=== PATIENT | male | born 1990 | race Caucasian/White ===

== ENCOUNTER 2018-04-16 19:06 | Inpatient (IN) | payer SELFPAY ==
[~2018-04-16] VITALS: Ht 185.4 cm; Wt 69.9 kg
[2018-04-16] MEDS ORDERED: SODIUM CHLORIDE 0.9% 1,000 ML IV ONE (20:15)
[2018-04-16] MEDS ORDERED: DEXTROSE 50% SYRINGE 50 ML IV ONE (20:35)
[2018-04-16 20:37] LABS: Basophils # (auto) 0 uL; Basophils % (auto) 0.2 % (0.0-2.0); Eosinophils # (auto) 0 uL; Eosinophils % (auto) 0.1 % (0.0-7.0); Hematocrit 44.5 % (41.0-53.0); Hemoglobin 14.9 g/dL (13.5-17.5); Lymphocytes # (auto) 0.7 uL; Lymphocytes % (auto) 6.8 % (10.0-50.0); Mean Corpuscular Hemoglobin 31.5 pg (28.0-32.0); Mean Corpuscular Hgb Conc. 33.5 g/dL (32.0-36.0); Mean Corpuscular Volume 94.2 fL (80.0-100.0); Monocytes # (auto) 0.6 uL; Monocytes % (auto) 5.2 % (0.0-12.0); Neutrophils # (auto) 9.5 uL; Neutrophils % (auto) 87.7 % (37.0-80.0); Platelet Count (auto) 133 10^3/uL (140-450); Red Blood Cells 4.73 10^6/uL (4.5-5.90); Red Cell Distribution Width 12.8 % (11.8-14.3); White Blood Cell 10.8 10^3/uL (4.4-10.8)
[2018-04-16] MEDS ORDERED: DEXTROSE (50%) 50ML SYRG IV ONE (20:45)
[2018-04-16 20:47] LABS: Alanine Aminotransferase 17 U/L (16-61); Albumin 3.9 g/dL (3.4-5.0); Anion Gap 8 (5-15); Aspartate Aminotransferase 12 U/L (15-37); BUN/Creatinine Ratio 14.3; Blood Alcohol < 3.0 mg/dL (0-5); Blood Urea Nitrogen 19 mg/dL (7-18); Carbon Dioxide 29 mmol/L (21-32); Chloride 106 mmol/L (98-107); GFR African American 84 mL/min; GFR Non-African American 70 mL/min; Glucose 80 mg/dL (74-106); Magnesium 2.2 mg/dL (1.6-2.6); Potassium 3.9 mmol/L (3.5-5.1); Sodium 143 mmol/L (136-145)
[2018-04-16 20:50] LABS: Alkaline Phosphatase 87 U/L (45-117); Bilirubin, Total 0.1 mg/dL (0.2-1.0); Total Protein 7.8 g/dL (6.4-8.2)
[2018-04-16 20:55] LABS: Acetaminophen < 2.0 ug/mL (10-30); Salicylate < 1.7 mg/dL (2.8-20.0)
[2018-04-16 21:18] LABS: Urine Bacteria NONE SEEN /hpf (None Seen); Urine Blood 1+ /uL (Negative); Urine Mucus FEW (None Seen); Urine Specific Gravity 1.024 (1.001-1.035); Urine WBC 3 /hpf (0 - 3)
[2018-04-16 21:32] LABS: Alcohol, Urine < 3.0 mg/dL (0-5); Amphetamine Screen, Urine NEGATIVE (NEGATIVE); Barbiturate Scree,Urine NEGATIVE (NEGATIVE); Benzodiazephine Screen, Urine NEGATIVE (NEGATIVE); Cannabinoid Screen, Urine POSITIVE (NEGATIVE); Cocaine Screen, Urine NEGATIVE (NEGATIVE); Phencyclidine Screen, Urine NEGATIVE (NEGATIVE)
[2018-04-16 21:49] LABS: Opiate Scree,Urine NEGATIVE (NEGATIVE)
[2018-04-16] MEDS ORDERED: DEXTROSE 10% 1,000 ML IV ONE ×2 (23:35→23:45)
[2018-04-17] MEDS: SODIUM CHLORIDE 0.9% 1,000 ML IV SCH ×2 (00:35→13:00)
[2018-04-17] MEDS ORDERED: ACETAMINOPHEN 325 MG TAB PO PRN (00:45)
[2018-04-17] MEDS ORDERED: DEXTROSE 10% 1,000 ML IV ONE (00:45)
[2018-04-17] MEDS ORDERED: ONDANSETRON HCL 4 MG/2 ML VIAL IV PRN (00:45)
[2018-04-17] MEDS ORDERED: TEMAZEPAM 15 MG CAP PO PRN (00:45)
[2018-04-17] MEDS ORDERED: NITROGLYCERIN 0.4 MG SL TAB SL PRN (00:45)
[2018-04-17] MEDS ORDERED: MORPHINE SULF(PF) 0.5MG/ML 10ML VIAL IV PRN (00:45)
[2018-04-17] MEDS ORDERED: DEXTROSE (50%) 50ML SYRG IV PRN ×2 (00:45→17:15)
[2018-04-17] MEDS: InsuLIN REG 1unit/0.01ml Soln (100units/ml) SC SCH ×3 (04:00→15:14)
[2018-04-17] MEDS: ACCU-CHEK COMFORT CURVE STRIP VI SCH ×3 (04:01→15:15)
[2018-04-17 08:15] VITALS: BP 146/89
[2018-04-17 09:00] VITALS: BP 151/91
[2018-04-17] MEDS ORDERED: FAMOTIDINE 20 MG TAB PO SCH (10:00)
[2018-04-17] MEDS ORDERED: ENOXAPARIN SOD 40 MG/0.4 ML SYRINGE SC SCH (10:00)
[2018-04-17 13:00] VITALS: BP_SYST 143; BP_DIAS 82; BP_DIAS 92
[2018-04-17 17:00] VITALS: BP 142/97
[2018-04-17] MEDS ORDERED: ACCU-CHEK COMFORT CURVE STRIP VI SCH (22:00)
[2018-04-17] MEDS ORDERED: InsuLIN REG 1unit/0.01ml Soln (100units/ml) SC SCH (22:00)
[2018-04-18] MEDS ORDERED: InsuLIN REG 1unit/0.01ml Soln (100units/ml) SC SCH (07:00)
== END 2018-04-17 19:40 | disposition home or self-care (01) | DRG 639 ==
LOC: ER 19:06 → TELE 19:07 → TELE-WESTW 04-17 07:57
PROVIDERS: ADMIT Nurse Practitioner; ATTEND Internal Medicine Pulmonary Disease
DX: E10.65 Type 1 diabetes mellitus with hyperglycemia (principal); E10.649 Type 1 diabetes mellitus with hypoglycemia without coma; E86.0 Dehydration; I10 Essential (primary) hypertension; R80.9 Proteinuria, unspecified
CPT/HCPCS: 36415; 71045; 80053; 80307; 80320; 80329; 81001; 82962; 83735; 85025; 93005; 94761; 96361; 96374; J1815

== ENCOUNTER 2021-09-01 11:28 | Inpatient (IN) | payer MEDICAID ==
[~2021-09-01] VITALS: Ht 185.4 cm; Wt 65.7 kg
[2021-09-01] MEDS ORDERED: SODIUM CHLORIDE 0.9% 1,000 ML IV ONE ×2 (11:45→12:00)
[2021-09-01] MEDS ORDERED: ONDANSETRON HCL 4 MG/2 ML VIAL IV ONE (12:00)
[2021-09-01] MEDS ORDERED: SODIUM CHLORIDE 0.9% 1,000 ML IVB ONE (12:00)
[2021-09-01 13:20] LABS: Eosinophils # (auto) 0 10 ^3/uL (0-0.8); Hemoglobin 13.3 g/dL (13.5-17.5); Lymphocytes # (auto) 1.1 10 ^3/uL (0.4-5.4)
[2021-09-01 13:22] LABS: Basophils # (auto) 0 10 ^3/uL (0-0.2); Basophils % (auto) 0.1 % (0.0-2.0); Hematocrit 45.2 % (41.0-53.0); Lymphocytes % (auto) 4.7 % (10.0-50.0); Mean Corpuscular Hemoglobin 31.6 pg (28.0-32.0); Mean Corpuscular Hgb Conc. 29.4 g/dL (32.0-36.0); Mean Corpuscular Volume 107.3 fL (80.0-100.0); Monocytes # (auto) 2.2 10 ^3/uL (0-1.3); Monocytes % (auto) 9.3 % (0.0-12.0); Neutrophils # (auto) 20.5 10 ^3/uL (1.6-8.6); Neutrophils % (auto) 85.9 % (37.0-80.0); Red Blood Cells 4.21 10^6/uL (4.5-5.90); Red Cell Distribution Width 13.7 % (11.8-14.3); White Blood Cell 23.9 10^3/uL (4.4-10.8)
[2021-09-01 13:54] LABS: Calcium 8.9 mg/dL (8.5-10.1)
[2021-09-01 14:03] LABS: Urine Bacteria NONE SEEN /hpf (None Seen); Urine Blood 1+ /uL (Negative); Urine Specific Gravity 1.022 (1.001-1.035); Urine WBC 2 /hpf (0 - 3)
[2021-09-01 14:04] LABS: Bilirubin, Total 0.4 mg/dL (0.2-1.0)
[2021-09-01 14:07] LABS: Potassium 5.9 mmol/L (3.5-5.1)
[2021-09-01] MEDS ORDERED: DEXTROSE (50%) 50ML SYRG IV PRN ×2 (14:15→15:15)
[2021-09-01] MEDS ORDERED: InsuLIN R (HUMAN) 100 UNITS in SODIUM CHL 0.9% 99 ML IV SCH ×2 (14:15→15:15)
[2021-09-01] MEDS ORDERED: SODIUM BICARBONATE 8.4 % INJ 50ML VIAL IV ONE ×4 (14:15→18:15)
[2021-09-01] MEDS ORDERED: ACCU-CHEK COMFORT CURVE STRIP VI SCH (15:00)
[2021-09-01] MEDS ORDERED: NITROGLYCERIN 0.4 MG SL TAB SL PRN (15:15)
[2021-09-01] MEDS ORDERED: MORPHINE SULFATE INJECTION 2 MG/ML SYRG IV PRN (15:15)
[2021-09-01] MEDS ORDERED: ACETAMINOPHEN 325 MG TAB PO PRN (15:15)
[2021-09-01] MEDS: SODIUM CHLORIDE 0.9% 1,000 ML IV SCH ×2 (15:46→22:06)
[2021-09-01] MEDS: ACCU-CHEK COMFORT CURVE STRIP VI SCH ×5 (16:34→22:06)
[2021-09-01] MEDS ORDERED: SOD CHL 0.45% 1,000 ML IV ONE (16:45)
[2021-09-01] MEDS: POTASSIUM CHL 20MEQ/100ML 100 ML IV SCH ×3 (18:10→21:50)
[2021-09-01] MEDS: ONDANSETRON HCL 4 MG/2 ML VIAL IV PRN (18:50)
[2021-09-01 18:59] LABS: Calcium 8.7 mg/dL (8.5-10.1); Magnesium 3.2 mg/dL (1.6-2.6); Potassium 3.3 mmol/L (3.5-5.1)
[2021-09-01 19:01] LABS: Phosphorus 1.1 mg/dL (2.5-4.90)
[2021-09-01 19:09] LABS: BUN/Creatinine Ratio 15.3
[2021-09-01 22:37] LABS: BUN/Creatinine Ratio 15.2; Calcium 9.5 mg/dL (8.5-10.1); Magnesium 3.1 mg/dL (1.6-2.6); Potassium 3.4 mmol/L (3.5-5.1)
[2021-09-01 23:24] LABS: Phosphorus 0.6 mg/dL (2.5-4.90)
[2021-09-02] MEDS: ACCU-CHEK COMFORT CURVE STRIP VI SCH ×4 (00:13→18:12)
[2021-09-02] MEDS ORDERED: INSULIN LANTUS (GLARGINE) 1 /0.01ml (100units/ml) SC ONE (01:00)
[2021-09-02] MEDS: MORPHINE SULFATE 4 MG/ML SYR/VIAL IV PRN (02:29)
[2021-09-02] MEDS: ONDANSETRON HCL 4 MG/2 ML VIAL IV PRN (02:29)
[2021-09-02] MEDS: hydrALAZINE HCL 20 MG/ML VL IV PRN ×3 (03:02→13:45)
[2021-09-02] MEDS: SODIUM CHLORIDE 0.9% 1,000 ML IV SCH (04:35)
[2021-09-02] MEDS: InsuLIN REG 1unit/0.01ml Soln (100units/ml) SC SCH ×3 (05:47→18:17)
[2021-09-02] MEDS: SOD CHL 0.45% 1,000 ML IV SCH ×3 (06:27→16:53)
[2021-09-02] MEDS: HYDROcodone-ACET 5/325MG TAB PO PRN (06:53)
[2021-09-02] MEDS: INSULIN LANTUS (GLARGINE) 1 /0.01ml (100units/ml) SC SCH ×2 (07:00→22:02)
[2021-09-02] MEDS ORDERED: INSULIN LANTUS (GLARGINE) 1 /0.01ml (100units/ml) SC SCH (07:00)
[2021-09-02 08:02] LABS: Calcium 9.3 mg/dL (8.5-10.1); Magnesium 2.9 mg/dL (1.6-2.6); Potassium 4.1 mmol/L (3.5-5.1)
[2021-09-02 08:04] LABS: BUN/Creatinine Ratio 15.4
[2021-09-02] MEDS ORDERED: SODIUM PHOSPHATES 24 MEQ in SODIUM CHL 0.9% 100 ML IV ONE (10:30)
[2021-09-02] MEDS ORDERED: hydrALAZINE HCL 25 MG TAB PO ONE (10:45)
[2021-09-02] MEDS: PROMETHAZINE HCL 25 MG/ML 1ML IV PRN ×2 (10:59→17:02)
[2021-09-02] MEDS ORDERED: POTASSIUM PHOSPHATE 22 MEQ in SODIUM CHL 0.9% 100 ML IV ONE ×3 (11:30→20:00)
[2021-09-02 15:11] LABS: BUN/Creatinine Ratio 14.9; Calcium 9.2 mg/dL (8.5-10.1); Potassium 4.3 mmol/L (3.5-5.1)
[2021-09-02] MEDS ORDERED: cloNIDine HCL 0.1 MG TAB ONE (18:09)
[2021-09-02] MEDS ORDERED: cloNIDine HCL 0.1 MG TAB PO ONE (18:15)
[2021-09-02] MEDS ORDERED: NITROGLYCERIN 50MG/250ML 250 ML IV ONE (18:40)
[2021-09-02] MEDS: NITROGLYCERIN 50MG/250ML 250 ML IV SCH (18:46)
[2021-09-02 20:46] LABS: BUN/Creatinine Ratio 14.5; Calcium 9.1 mg/dL (8.5-10.1); Potassium 3.8 mmol/L (3.5-5.1)
[2021-09-03] MEDS: ACCU-CHEK COMFORT CURVE STRIP VI SCH ×4 (00:05→17:59)
[2021-09-03] MEDS: InsuLIN REG 1unit/0.01ml Soln (100units/ml) SC SCH ×4 (00:07→18:08)
[2021-09-03] MEDS: SOD CHL 0.45% 1,000 ML IV SCH ×4 (02:32→22:07)
[2021-09-03] MEDS: PROMETHAZINE HCL 25 MG/ML 1ML IV PRN ×2 (05:43→17:21)
[2021-09-03] MEDS: INSULIN LANTUS (GLARGINE) 1 /0.01ml (100units/ml) SC SCH ×2 (06:27→22:02)
[2021-09-03] MEDS: hydrALAZINE HCL 25 MG TAB PO SCH (10:02)
[2021-09-03] MEDS: ONDANSETRON HCL 4 MG/2 ML VIAL IV PRN ×2 (10:05→20:04)
[2021-09-03 11:01] LABS: BUN/Creatinine Ratio 14.1; Calcium 8.9 mg/dL (8.5-10.1)
[2021-09-03 11:22] LABS: Magnesium 2.7 mg/dL (1.6-2.6); Phosphorus 3.1 mg/dL (2.5-4.90)
[2021-09-03] MEDS ORDERED: ONDA-188 PO (15:06)
[2021-09-03] MEDS ORDERED: METO-517 PO (15:06)
[2021-09-03] MEDS ORDERED: OMEP-263 PO (15:06)
[2021-09-03] MEDS ORDERED: PANT40T PO (15:06)
[2021-09-03] MEDS ORDERED: AMLO-489 PO (15:06)
[2021-09-03] MEDS: NITROGLYCERIN 50MG/250ML 250 ML IV SCH (19:37)
[2021-09-03] MEDS: MORPHINE SULFATE 4 MG/ML SYR/VIAL IV PRN ×2 (21:20→21:52)
[2021-09-04] MEDS: InsuLIN REG 1unit/0.01ml Soln (100units/ml) SC SCH ×4 (00:11→18:34)
[2021-09-04] MEDS: ACCU-CHEK COMFORT CURVE STRIP VI SCH ×4 (00:13→18:34)
[2021-09-04 04:51] LABS: Albumin 2.1 g/dL (3.4-5.0); Calcium 8.3 mg/dL (8.5-10.1); Potassium 3.7 mmol/L (3.5-5.1)
[2021-09-04 04:54] LABS: BUN/Creatinine Ratio 12.7; Bilirubin, Total 0.7 mg/dL (0.2-1.0); Total Protein 5.8 g/dL (6.4-8.2)
[2021-09-04] MEDS: MORPHINE SULFATE 4 MG/ML SYR/VIAL IV PRN ×2 (05:32→20:04)
[2021-09-04] MEDS: SOD CHL 0.45% 1,000 ML IV SCH ×3 (05:39→18:27)
[2021-09-04] MEDS: NITROGLYCERIN 50MG/250ML 250 ML IV SCH ×2 (06:45→20:59)
[2021-09-04] MEDS: INSULIN LANTUS (GLARGINE) 1 /0.01ml (100units/ml) SC SCH ×2 (07:29→22:35)
[2021-09-04] MEDS: hydrALAZINE HCL 25 MG TAB PO SCH (10:02)
[2021-09-04] MEDS: ONDANSETRON HCL 4 MG/2 ML VIAL IV PRN (20:05)
[2021-09-05] MEDS: ACCU-CHEK COMFORT CURVE STRIP VI SCH ×4 (00:31→18:09)
[2021-09-05] MEDS: InsuLIN REG 1unit/0.01ml Soln (100units/ml) SC SCH ×4 (00:32→18:00)
[2021-09-05] MEDS: SOD CHL 0.45% 1,000 ML IV SCH ×4 (01:05→21:00)
[2021-09-05] MEDS: NITROGLYCERIN 50MG/250ML 250 ML IV SCH ×2 (02:53→18:12)
[2021-09-05] MEDS: HYDROcodone-ACET 5/325MG TAB PO PRN ×2 (06:15→20:23)
[2021-09-05] MEDS: INSULIN LANTUS (GLARGINE) 1 /0.01ml (100units/ml) SC SCH ×2 (06:19→22:29)
[2021-09-05] MEDS: PROMETHAZINE HCL 25 MG/ML 1ML IV PRN ×2 (07:30→14:07)
[2021-09-05 07:35] LABS: Potassium 3.4 mmol/L (3.5-5.1)
[2021-09-05 07:46] LABS: BUN/Creatinine Ratio 10.1; Calcium 8.3 mg/dL (8.5-10.1)
[2021-09-05] MEDS: hydrALAZINE HCL 25 MG TAB PO SCH (10:34)
[2021-09-05] MEDS: MORPHINE SULFATE 4 MG/ML SYR/VIAL IV PRN (14:08)
[2021-09-05 14:24] LABS: Potassium 3.4 mmol/L (3.5-5.1)
[2021-09-05 14:25] LABS: Basophils # (auto) 0.1 10 ^3/uL (0-0.2); Basophils % (auto) 0.5 % (0.0-2.0); Eosinophils # (auto) 0.4 10 ^3/uL (0-0.8); Eosinophils % (auto) 4.3 % (0.0-7.0); Hematocrit 36.7 % (41.0-53.0); Hemoglobin 12.4 g/dL (13.5-17.5); Lymphocytes # (auto) 1.9 10 ^3/uL (0.4-5.4); Lymphocytes % (auto) 20.4 % (10.0-50.0); Mean Corpuscular Hemoglobin 31.6 pg (28.0-32.0); Mean Corpuscular Hgb Conc. 33.8 g/dL (32.0-36.0); Mean Corpuscular Volume 93.3 fL (80.0-100.0); Monocytes # (auto) 0.9 10 ^3/uL (0-1.3); Monocytes % (auto) 9.9 % (0.0-12.0); Neutrophils # (auto) 6.1 10 ^3/uL (1.6-8.6); Neutrophils % (auto) 64.9 % (37.0-80.0); Nucleated Red Blood Cells % 0.1 %; Red Blood Cells 3.93 10^6/uL (4.5-5.90); Red Cell Distribution Width 12.7 % (11.8-14.3); White Blood Cell 9.4 10^3/uL (4.4-10.8)
[2021-09-05 14:29] LABS: BUN/Creatinine Ratio 9.2; Bilirubin, Total 0.6 mg/dL (0.2-1.0); Total Protein 5.9 g/dL (6.4-8.2)
[2021-09-05] MEDS ORDERED: NITROGLYCERIN 50MG/250ML 250 ML IV ONE (18:02)
[2021-09-05] MEDS ORDERED: NIFEdipine ER 30 MG TAB PO SCH (18:30)
[2021-09-06] MEDS: ACCU-CHEK COMFORT CURVE STRIP VI SCH ×5 (00:10→23:41)
[2021-09-06] MEDS: InsuLIN REG 1unit/0.01ml Soln (100units/ml) SC SCH ×5 (00:13→23:41)
[2021-09-06] MEDS: ONDANSETRON HCL 4 MG/2 ML VIAL IV PRN ×2 (01:51→21:15)
[2021-09-06] MEDS: HYDROcodone-ACET 5/325MG TAB PO PRN (03:30)
[2021-09-06] MEDS: SOD CHL 0.45% 1,000 ML IV SCH ×2 (03:35→09:24)
[2021-09-06] MEDS: INSULIN LANTUS (GLARGINE) 1 /0.01ml (100units/ml) SC SCH (06:50)
[2021-09-06] MEDS: hydrALAZINE HCL 25 MG TAB PO SCH (09:24)
[2021-09-06] MEDS ORDERED: NIFEdipine ER 30 MG TAB PO SCH (10:00)
[2021-09-06 11:08] LABS: Calcium 7.8 mg/dL (8.5-10.1); Potassium 3.3 mmol/L (3.5-5.1)
[2021-09-06] MEDS: NITROGLYCERIN 50MG/250ML 250 ML IV SCH (18:00)
[2021-09-06] MEDS: hydrALAZINE HCL 20 MG/ML VL IV PRN (21:15)
[2021-09-06 22:40] VITALS: BP 147/86
[2021-09-06] MEDS ORDERED: HYDROcodone-ACET 5/325MG TAB PO PRN (23:30)
[2021-09-06] MEDS ORDERED: MORPHINE SULFATE INJECTION 2 MG/ML SYRG IV PRN (23:30)
[2021-09-06] MEDS ORDERED: MORPHINE SULFATE 4 MG/ML SYR/VIAL IV PRN (23:30)
[2021-09-07] MEDS ORDERED: INFLUENZA QUAD 2021-2022 0.5 ML SYRG IM ONE (00:30)
[2021-09-07] MEDS ORDERED: AML5T PO (00:50)
[2021-09-07] MEDS: InsuLIN REG 1unit/0.01ml Soln (100units/ml) SC SCH ×3 (05:38→17:21)
[2021-09-07] MEDS: ACCU-CHEK COMFORT CURVE STRIP VI SCH ×3 (05:39→17:16)
[2021-09-07 05:41] VITALS: BP 150/87
[2021-09-07 06:33] LABS: BUN/Creatinine Ratio 6.9; Calcium 8.2 mg/dL (8.5-10.1); Potassium 3.7 mmol/L (3.5-5.1)
[2021-09-07] MEDS: INSULIN LANTUS (GLARGINE) 1 /0.01ml (100units/ml) SC SCH ×2 (07:05→21:36)
[2021-09-07 08:30] VITALS: BP 162/112
[2021-09-07] MEDS ORDERED: hydrALAZINE HCL 25 MG TAB PO SCH (10:00)
[2021-09-07] MEDS ORDERED: NIFEdipine ER 30 MG TAB PO SCH (10:00)
[2021-09-07 12:30] VITALS: BP 168/112
[2021-09-07] MEDS: hydrALAZINE HCL 20 MG/ML VL IV PRN (13:44)
[2021-09-07 16:53] VITALS: BP 150/107
[2021-09-07 18:00] VITALS: BP 162/105
== END 2021-09-07 21:47 | disposition home or self-care (01) | DRG 282 ==
LOC: ER 11:28 → TELE 15:23 → TELE-WESTW 09-06 22:32
PROVIDERS: ADMIT Internal Medicine; ATTEND Internal Medicine
DX: K85.80 Other acute pancreatitis without necrosis or infection (principal); N17.0 Acute kidney failure with tubular necrosis; G93.41 Metabolic encephalopathy; E10.10 Type 1 diabetes mellitus with ketoacidosis without coma; E87.0 Hyperosmolality and hypernatremia; R65.10 Systemic inflammatory response syndrome (SIRS) of non-infectious origin without acute organ dysfunction; Z91.19 Patient's noncompliance with other medical treatment and regimen; N20.0 Calculus of kidney; E87.5 Hyperkalemia; Z20.822 Contact with and (suspected) exposure to COVID-19; E87.6 Hypokalemia; F41.9 Anxiety disorder, unspecified; I10 Essential (primary) hypertension; Z79.4 Long term (current) use of insulin; Z82.49 Family history of ischemic heart disease and other diseases of the circulatory system; Z87.442 Personal history of urinary calculi; Z23 Encounter for immunization
CPT/HCPCS: 36415; 36600; 71045; 74176; 76705; 80048; 80053; 81001; 82150; 82805; 82962; 83690; 83735; 84100; 85025; 87426; 90686; 93005; 96365; 96375; 99291; G0378; J1815; J2405; J3480